=== PATIENT | female | born 1945 | race Caucasian/White ===

== ENCOUNTER 2022-11-26 15:32 | Inpatient (IN) | payer MEDICARE ==
[~2022-11-26] VITALS: Ht 167.6 cm; Wt 77.1 kg
[~2022-11-26 15:32] MED LIST: ACYC200C31 PO; CARV12.545 PO; LOSA100T33 PO; ROSU5TAB PO
[2022-11-26] MEDS ORDERED: ONDANSETRON HCL 4MG/2ML INJ IV PRN (16:45)
[2022-11-26] MEDS ORDERED: MAGNESIUM/ALUMINUM HYDROXIDE/SIMETHICONE 30ML UDC PO PRN (16:45)
[2022-11-26] MEDS ORDERED: NA PHOS,M-B/NA PHOS,DI-BA ENEMA 118ML PR PRN (16:45)
[2022-11-26] MEDS ORDERED: HYDROCODONE/ACETAMINOPHEN 5/325MG TABLET PO PRN (16:45)
[2022-11-26] MEDS ORDERED: ACETAMINOPHEN 650MG/20.3ML UDC PO PRN ×2 (16:45)
[2022-11-26] MEDS ORDERED: NALOXONE HCL 0.4 MG/ML 1ML VIAL IV PRN (16:45)
[2022-11-26] MEDS ORDERED: HYDRALAZINE HCL 10MG TABLET PO PRN (16:45)
[2022-11-26] MEDS: DOCUSATE SODIUM 100MG CAPSULE PO SCH (17:00)
[2022-11-26 17:15] VITALS: BP 137/58; PULSE 77; RESP 20; TEMP 97.6; TEMP 98.1
[2022-11-26] MEDS: ACYCLOVIR 200MG CAPSULE PO SCH ×2 (18:00→22:00)
[2022-11-26 20:00] VITALS: BP 141/54; PULSE 78; RESP 18; TEMP 98.8
[2022-11-26] MEDS: FAMOTIDINE 20MG TABLET PO SCH (21:00)
[2022-11-27] MEDS: ACYCLOVIR 200MG CAPSULE PO SCH ×5 (06:00→21:00)
[2022-11-27 07:31] LABS: BASOPHILS % 0.6 % (0.0-2.0); EOSINOPHILS % 8.7 % (0.0-5.0); HEMATOCRIT. 37.5 % (36.0-48.0); HEMOGLOBIN. 13.4 g/dL (12.0-16.0); LYMPHOCYTES % 27.3 % (20.0-50.0); MEAN CORPUSCULAR HEMOGLOBIN 33.4 pg (28.0-32.0); MEAN CORPUSCULAR HGB CONC 35.8 g/dL (31.0-37.0); MEAN CORPUSCULAR VOLUME 93.2 fL (81.0-99.0); MEAN PLATELET VOLUME 9.7 fl (7.4-10.4); NEUTROPHILS % 53.4 % (40.0-76.0); PLATELET 217 x1000/uL (130-400); RED BLOOD CELL COUNT 4.02 mill/uL (4.2-5.4); RED CELL DISTRIBUTION WIDTH 13.3 % (11.6-14.6); WHITE BLOOD COUNT 9.3 x1000/uL (4.5-11.0)
[2022-11-27 08:15] LABS: CHLORIDE 108 mEq/L (98-107); INDEX HEMOLYSI 1 (1-3); INDEX ICTERIC 1 (1-4); INDEX LIPEMIC 1 (1-3); POTASSIUM 4.1 mEq/L (3.5-5.1); SODIUM 137 mEq/L (136-145)
[2022-11-27 08:22] LABS: ALANINE AMINOTRANSFERASE 12 IU/L (13-61); ALBUMIN 2.7 g/dL (3.4-5.0); ASPARTATE AMINOTRANSFERASE 14 IU/L (15-37); BILIRUBIN TOTAL 1.2 mg/dL (0.1-1.0); CALCIUM 8.4 mg/dL (8.5-10.1); CARBON DIOXIDE 24 mEq/L (21-32); CREATININE 0.8 mg/dL (0.6-1.3); GLUCOSE 105 mg/dL (70-105); UREA NITROGEN BLOOD 15 mg/dL (7-21)
[2022-11-27] MEDS: DOCUSATE SODIUM 100MG CAPSULE PO SCH ×2 (08:23→16:43)
[2022-11-27] MEDS: ENOXAPARIN 40MG/0.4ML SYR SUBCUT SCH (08:23)
[2022-11-27 08:55] LABS: PREALBUMIN 15.5 mg/dL (20.0-40.0)
[2022-11-27 09:26] VITALS: BP 143/62; PULSE 88; RESP 18; TEMP 98.6
[2022-11-27 20:09] VITALS: BP 142/70; PULSE 86; RESP 20; TEMP 97.1
[2022-11-27] MEDS: FAMOTIDINE 20MG TABLET PO SCH (20:57)
[2022-11-27] MEDS ORDERED: ACYCLOVIR 200MG CAPSULE PO SCH (21:00)
[2022-11-28] VITALS: BP 136/64; PULSE 76; RESP 20; TEMP 97.7
[2022-11-28 06:30] LABS: HEMATOCRIT 38.9 % (36.0-48.0); HEMOGLOBIN 13.4 g/dL (12.0-16.0); MEAN CORPUSCULAR HEMOGLOBIN 32.1 pg (28.0-32.0); MEAN CORPUSCULAR HGB CONC 34.3 g/dL (31.0-37.0); MEAN CORPUSCULAR VOLUME 93.4 fL (81.0-99.0); PLATELET 241 x1000/uL (130-400); RED BLOOD CELL COUNT 4.17 mill/uL (4.2-5.4); RED CELL DISTRIBUTION WIDTH 12.9 % (11.6-14.6); WHITE BLOOD COUNT 11.6 x1000/uL (4.5-11.0)
[2022-11-28 07:21] LABS: CHLORIDE 108 mEq/L (98-107); INDEX HEMOLYSI 1 (1-3); INDEX ICTERIC 1 (1-4); INDEX LIPEMIC 1 (1-3); POTASSIUM 4.1 mEq/L (3.5-5.1); SODIUM 135 mEq/L (136-145)
[2022-11-28 07:38] LABS: CALCIUM 8.1 mg/dL (8.5-10.1); CARBON DIOXIDE 24 mEq/L (21-32); CREATININE 0.7 mg/dL (0.6-1.3); GLUCOSE 102 mg/dL (70-105); IRON 84 ug/dL (50-175); PHOSPHORUS 3.7 mg/dL (2.5-4.9); TOTAL IRON BINDING CAPACITY 219 ug/dL (250-450); UREA NITROGEN BLOOD 16 mg/dL (7-21)
[2022-11-28 08:00] VITALS: BP 141/66; PULSE 88; RESP 18; TEMP 97.8
[2022-11-28] MEDS: ACYCLOVIR 200MG CAPSULE PO SCH ×3 (09:00→16:29)
[2022-11-28] MEDS: DOCUSATE SODIUM 100MG CAPSULE PO SCH ×2 (09:20→16:28)
[2022-11-28] MEDS: ENOXAPARIN 40MG/0.4ML SYR SUBCUT SCH (09:21)
[2022-11-28 10:30] LABS: FOLIC ACID (FOLATE) SERUM 11.5 ng/mL (>5.38)
[2022-11-28 20:00] VITALS: BP 137/73; PULSE 88; RESP 18; TEMP 98.1
[2022-11-28] MEDS: FAMOTIDINE 20MG TABLET PO SCH (21:04)
[2022-11-29 06:51] LABS: HEMATOCRIT 37.9 % (36.0-48.0); HEMOGLOBIN 13.3 g/dL (12.0-16.0); MEAN CORPUSCULAR HEMOGLOBIN 32.9 pg (28.0-32.0); MEAN CORPUSCULAR HGB CONC 35.2 g/dL (31.0-37.0); MEAN CORPUSCULAR VOLUME 93.4 fL (81.0-99.0); PLATELET 239 x1000/uL (130-400); RED BLOOD CELL COUNT 4.05 mill/uL (4.2-5.4); RED CELL DISTRIBUTION WIDTH 13.2 % (11.6-14.6); WHITE BLOOD COUNT 10.8 x1000/uL (4.5-11.0)
[2022-11-29 07:19] LABS: CHLORIDE 108 mEq/L (98-107); INDEX HEMOLYSI 1 (1-3); INDEX ICTERIC 1 (1-4); INDEX LIPEMIC 1 (1-3); SODIUM 136 mEq/L (136-145)
[2022-11-29 07:25] LABS: CALCIUM 8.3 mg/dL (8.5-10.1); CARBON DIOXIDE 23 mEq/L (21-32); CREATININE 0.8 mg/dL (0.6-1.3); GLUCOSE 112 mg/dL (70-105); UREA NITROGEN BLOOD 20 mg/dL (7-21)
[2022-11-29 08:00] VITALS: BP 139/66; PULSE 76; RESP 18; TEMP 97.5
[2022-11-29] MEDS: ACYCLOVIR 200MG CAPSULE PO SCH ×3 (09:47→17:00)
[2022-11-29] MEDS: DOCUSATE SODIUM 100MG CAPSULE PO SCH ×2 (09:47→17:00)
[2022-11-29] MEDS: ENOXAPARIN 40MG/0.4ML SYR SUBCUT SCH (09:50)
[2022-11-29 11:03] LABS: CLARITY URINE CLEAR (CLEAR); COLOR URINE DARK YELLOW (YELLOW); GLUCOSE URINE NEGATIVE (NEGATIVE); KETONES URINE NEGATIVE (NEGATIVE); LEUKOCYTE ESTERASE URINE NEGATIVE (NEGATIVE); NITRITE URINE NEGATIVE (NEGATIVE); OCCULT BLOOD URINE NEGATIVE (NEGATIVE); PH URINE 5.5 (4.5-8.0); PROTEIN URINE NEGATIVE (NEGATIVE); SPECIFIC GRAVITY URINE 1.019 (1.005-1.030); UROBILINOGEN URINE 0.2 E.U./dL (0.2-1.0)
[2022-11-29] MEDS: ERGOCALCIFEROL 50000UNITS CAPSULE PO SCH (16:40)
[2022-11-29] MEDS: CYANOCOBALAMIN 1000MCG/ML VIAL IM SCH (16:46)
[2022-11-29] MEDS: DICLOFENAC SODIUM 1% GEL 50GM TOP SCH ×2 (17:00→20:27)
[2022-11-29 19:42] VITALS: BP 131/65; PULSE 80; RESP 18; TEMP 97.5
[2022-11-29] MEDS: FAMOTIDINE 20MG TABLET PO SCH (20:27)
[2022-11-30 08:00] VITALS: BP 128/58; PULSE 67; RESP 19; TEMP 97.7
[2022-11-30] MEDS: ACYCLOVIR 200MG CAPSULE PO SCH (09:00)
[2022-11-30] MEDS: CYANOCOBALAMIN 1000MCG/ML VIAL IM SCH (09:06)
[2022-11-30] MEDS: ENOXAPARIN 40MG/0.4ML SYR SUBCUT SCH (09:06)
[2022-11-30] MEDS: DOCUSATE SODIUM 100MG CAPSULE PO SCH ×2 (09:06→16:23)
[2022-11-30] MEDS: DICLOFENAC SODIUM 1% GEL 50GM TOP SCH ×4 (09:15→20:50)
[2022-11-30] MEDS ORDERED: LEVOFLOXACIN 500MG TABLET PO NR (13:30)
[2022-11-30] MEDS ORDERED: ACYCLOVIR 400 MG TABLET PO SCH (17:00)
[2022-11-30 20:00] VITALS: BP 136/55; PULSE 85; RESP 18; TEMP 97.9
[2022-11-30] MEDS: FAMOTIDINE 20MG TABLET PO SCH (20:49)
[2022-11-30] MEDS: ACETAMINOPHEN 500MG TABLET PO SCH (20:50)
[2022-12-01 08:00] VITALS: BP 134/56; PULSE 82; RESP 20; TEMP 97.9
[2022-12-01] MEDS: DOCUSATE SODIUM 100MG CAPSULE PO SCH ×2 (08:44→17:10)
[2022-12-01] MEDS: CYANOCOBALAMIN 1000MCG/ML VIAL IM SCH (08:44)
[2022-12-01] MEDS: ENOXAPARIN 40MG/0.4ML SYR SUBCUT SCH (08:45)
[2022-12-01] MEDS: DICLOFENAC SODIUM 1% GEL 50GM TOP SCH ×4 (08:45→20:45)
[2022-12-01] MEDS: LEVOFLOXACIN 250MG TABLET PO SCH (11:08)
[2022-12-01] MEDS: ACYCLOVIR 400 MG TABLET PO SCH (17:10)
[2022-12-01 20:00] VITALS: BP 139/59; PULSE 72; RESP 17; TEMP 97.8
[2022-12-01] MEDS: ACETAMINOPHEN 500MG TABLET PO SCH (20:44)
[2022-12-01] MEDS: FAMOTIDINE 20MG TABLET PO SCH (20:44)
[2022-12-02 07:49] VITALS: BP 128/58; PULSE 68; RESP 18; TEMP 97.5
[2022-12-02] MEDS: DICLOFENAC SODIUM 1% GEL 50GM TOP SCH ×4 (09:00→21:00)
[2022-12-02] MEDS: CYANOCOBALAMIN 1000MCG/ML VIAL IM SCH (09:02)
[2022-12-02] MEDS: DOCUSATE SODIUM 100MG CAPSULE PO SCH ×2 (09:02→17:37)
[2022-12-02] MEDS: ENOXAPARIN 40MG/0.4ML SYR SUBCUT SCH (09:03)
[2022-12-02] MEDS: LEVOFLOXACIN 250MG TABLET PO SCH (11:46)
[2022-12-02] MEDS: ACYCLOVIR 400 MG TABLET PO SCH (17:37)
[2022-12-02 20:00] VITALS: BP 130/63; PULSE 77; RESP 18; TEMP 97.9
[2022-12-02] MEDS: FAMOTIDINE 20MG TABLET PO SCH (21:14)
[2022-12-02] MEDS: ACETAMINOPHEN 500MG TABLET PO SCH (21:14)
[2022-12-03 08:00] VITALS: BP 137/67; PULSE 64; RESP 18; TEMP 98.1
[2022-12-03] MEDS: DOCUSATE SODIUM 100MG CAPSULE PO SCH ×2 (08:02→16:30)
[2022-12-03] MEDS: CYANOCOBALAMIN 1000MCG/ML VIAL IM SCH (08:02)
[2022-12-03] MEDS: DICLOFENAC SODIUM 1% GEL 50GM TOP SCH ×4 (08:02→20:54)
[2022-12-03] MEDS: ENOXAPARIN 40MG/0.4ML SYR SUBCUT SCH (08:02)
[2022-12-03] MEDS: ACYCLOVIR 400 MG TABLET PO SCH (16:30)
[2022-12-03 20:00] VITALS: BP 134/58; PULSE 96; RESP 20; TEMP 97.9
[2022-12-03] MEDS: FAMOTIDINE 20MG TABLET PO SCH (20:53)
[2022-12-03] MEDS: ACETAMINOPHEN 500MG TABLET PO SCH (20:53)
[2022-12-04 08:00] VITALS: BP 121/80; PULSE 111; RESP 18; TEMP 97.1
[2022-12-04] MEDS: DICLOFENAC SODIUM 1% GEL 50GM TOP SCH ×4 (09:00→21:40)
[2022-12-04] MEDS: DOCUSATE SODIUM 100MG CAPSULE PO SCH ×2 (09:23→17:42)
[2022-12-04] MEDS: CYANOCOBALAMIN 1000MCG/ML VIAL IM SCH (09:23)
[2022-12-04] MEDS: ENOXAPARIN 40MG/0.4ML SYR SUBCUT SCH (09:24)
[2022-12-04] MEDS: ACYCLOVIR 400 MG TABLET PO SCH (17:43)
[2022-12-04 20:00] VITALS: BP 125/51; PULSE 16; RESP 18; TEMP 96.4
[2022-12-04] MEDS: ACETAMINOPHEN 500MG TABLET PO SCH (21:39)
[2022-12-04] MEDS: FAMOTIDINE 20MG TABLET PO SCH (21:40)
[2022-12-05 08:00] VITALS: BP 129/66; PULSE 73; RESP 19; TEMP 97.3
[2022-12-05] MEDS: DOCUSATE SODIUM 100MG CAPSULE PO SCH ×2 (08:22→16:06)
[2022-12-05] MEDS: CYANOCOBALAMIN 1000MCG/ML VIAL IM SCH (08:22)
[2022-12-05] MEDS: ENOXAPARIN 40MG/0.4ML SYR SUBCUT SCH (08:23)
[2022-12-05] MEDS: DICLOFENAC SODIUM 1% GEL 50GM TOP SCH ×4 (08:26→20:09)
[2022-12-05] MEDS: ACYCLOVIR 400 MG TABLET PO SCH (16:06)
[2022-12-05 20:00] VITALS: BP 131/66; PULSE 80; RESP 20; TEMP 98.1
[2022-12-05] MEDS: FAMOTIDINE 20MG TABLET PO SCH (20:08)
[2022-12-05] MEDS: ACETAMINOPHEN 500MG TABLET PO SCH (20:09)
[2022-12-06 06:12] LABS: BASOPHILS % 0.5 % (0.0-2.0); HEMATOCRIT. 37.7 % (36.0-48.0); HEMOGLOBIN. 13.2 g/dL (12.0-16.0); LYMPHOCYTES % 23.9 % (20.0-50.0); MEAN CORPUSCULAR HEMOGLOBIN 33.4 pg (28.0-32.0); MEAN CORPUSCULAR HGB CONC 34.9 g/dL (31.0-37.0); MEAN CORPUSCULAR VOLUME 95.7 fL (81.0-99.0); MEAN PLATELET VOLUME 8.6 fl (7.4-10.4); NEUTROPHILS % 59.6 % (40.0-76.0); PLATELET 259 x1000/uL (130-400); RED BLOOD CELL COUNT 3.94 mill/uL (4.2-5.4); RED CELL DISTRIBUTION WIDTH 13.6 % (11.6-14.6); WHITE BLOOD COUNT 8.6 x1000/uL (4.5-11.0)
[2022-12-06 07:02] LABS: CHLORIDE 112 mEq/L (98-107); INDEX HEMOLYSI 1 (1-3); INDEX ICTERIC 1 (1-4); INDEX LIPEMIC 1 (1-3); POTASSIUM 4.3 mEq/L (3.5-5.1); SODIUM 139 mEq/L (136-145)
[2022-12-06 07:11] LABS: CARBON DIOXIDE 22 mEq/L (21-32); CREATININE 0.7 mg/dL (0.6-1.3); GLUCOSE 107 mg/dL (70-105); UREA NITROGEN BLOOD 21 mg/dL (7-21)
[2022-12-06] MEDS: ENOXAPARIN 40MG/0.4ML SYR SUBCUT SCH (08:37)
[2022-12-06] MEDS: ERGOCALCIFEROL 50000UNITS CAPSULE PO SCH (08:37)
[2022-12-06] MEDS: DOCUSATE SODIUM 100MG CAPSULE PO SCH ×2 (08:37→17:00)
[2022-12-06] MEDS: DICLOFENAC SODIUM 1% GEL 50GM TOP SCH ×4 (08:38→21:42)
[2022-12-06 09:36] VITALS: BP 128/64; PULSE 74; RESP 18; TEMP 98.2
[2022-12-06] MEDS ORDERED: ERGO80009 PO ×2 (16:28)
[2022-12-06] MEDS ORDERED: DOCU-150 PO (16:28)
[2022-12-06] MEDS: ACYCLOVIR 400 MG TABLET PO SCH (17:00)
[2022-12-06 20:00] VITALS: BP 140/51; PULSE 75; RESP 18; TEMP 97.7
[2022-12-06] MEDS: FAMOTIDINE 20MG TABLET PO SCH (21:41)
[2022-12-06] MEDS: ACETAMINOPHEN 500MG TABLET PO SCH (21:41)
[2022-12-07 08:00] VITALS: BP 131/59; PULSE 74; RESP 18; TEMP 97.9
[2022-12-07] MEDS: ENOXAPARIN 40MG/0.4ML SYR SUBCUT SCH (09:39)
[2022-12-07] MEDS: DICLOFENAC SODIUM 1% GEL 50GM TOP SCH (09:39)
[2022-12-07] MEDS: DOCUSATE SODIUM 100MG CAPSULE PO SCH (09:39)
[2022-12-07 11:10] VITALS: BP 131/59; PULSE 74; TEMP 97.9; O2SAT 96
[2022-12-07] MEDS ORDERED: ERGO2000 PO (13:47)
== END 2022-12-07 13:40 | disposition home health service (06) | DRG 563 ==
PROVIDERS: ADMIT Physical Medicine & Rehabilitation Spinal Cord Injury Medicine; ATTEND Internal Medicine
DX: S82.52XA Displaced fracture of medial malleolus of left tibia, initial encounter for closed fracture (principal); E46 Unspecified protein-calorie malnutrition; N39.0 Urinary tract infection, site not specified; I73.00 Raynaud's syndrome without gangrene; I10 Essential (primary) hypertension; W10.8XXA Fall (on) (from) other stairs and steps, initial encounter; E78.5 Hyperlipidemia, unspecified; E55.9 Vitamin D deficiency, unspecified; F39 Unspecified mood [affective] disorder; G89.29 Other chronic pain; R53.81 Other malaise; S82.492A Other fracture of shaft of left fibula, initial encounter for closed fracture; R26.9 Unspecified abnormalities of gait and mobility; M54.50 Low back pain, unspecified; Z82.49 Family history of ischemic heart disease and other diseases of the circulatory system; Z85.828 Personal history of other malignant neoplasm of skin; Y93.89 Activity, other specified; Y92.89 Other specified places as the place of occurrence of the external cause; Y99.8 Other external cause status; Z88.0 Allergy status to penicillin; Z91.81 History of falling; Z85.89 Personal history of malignant neoplasm of other organs and systems; Z68.27 Body mass index [BMI] 27.0-27.9, adult; Z79.899 Other long term (current) drug therapy
CPT/HCPCS: 36415; 73590; 73610; 80048; 80053; 81003; 82306; 82607; 82728; 82746; 83036; 83540; 83550; 83735; 84100; 84134; 84443; 85025; 85027; 93970; 97110; 97116; 97162; 97166; 97530; 97535; 97542; J1650; J3420